=== PATIENT | female | born 2000 | race Caucasian/White ===

== ENCOUNTER 2023-09-08 09:56 | Emergency (ER) | payer OTHER ==
[~2023-09-08] VITALS: Ht 154.9 cm; Wt 55.8 kg
[~2023-09-08 09:56] MED LIST: ACET-10509 PO; NAPR-1704 PO
[2023-09-08 10:13] VITALS: BP 123/83; PULSE 74; RESP 18; TEMP 98.2; O2SAT 100
== END 2023-09-08 12:43 | disposition home or self-care (01) ==
LOC: MED 09:56
DX: A15.9 Respiratory tuberculosis unspecified (principal); Z79.899 Other long term (current) drug therapy
CPT/HCPCS: 71045; 99283